=== PATIENT | male | born 1985 | race Caucasian/White ===

== ENCOUNTER 2017-02-10 07:11 | Emergency (ER) | payer OTHER ==
[~2017-02-10] VITALS: Ht 182.9 cm; Wt 77.3 kg
[2017-02-10 07:14] VITALS: BP 147/102
[2017-02-10] MEDS ORDERED: ADACEL/BOOSTRIX VACCINE (DIPHTH/PERTUSS/ACELL/TETANUS)0.5ML SYR (90715) IM ONE (07:30)
== END 2017-02-10 07:52 | disposition home or self-care (01) ==
LOC: M ED 07:11
DX: S61.012A Laceration without foreign body of left thumb without damage to nail, initial encounter (principal); W26.0XXA Contact with knife, initial encounter; Y92.89 Other specified places as the place of occurrence of the external cause; Y93.89 Activity, other specified; Y99.0 Civilian activity done for income or pay

== ENCOUNTER 2018-10-25 14:22 | Emergency (ER) | payer OTHER, SELFPAY ==
[~2018-10-25] VITALS: Ht 182.9 cm; Wt 68.2 kg
[2018-10-25] MEDS ORDERED: NS 1,000 ML IV SCH (15:09)
[2018-10-25] MEDS ORDERED: ASPIRIN 81 MG CHEW TABLET PO ONE (15:15)
[2018-10-25] MEDS ORDERED: GI COCKTAIL 50ML BTL(HYOSCYAMINE/MAALOX/LIDOCAINE VISCOUS)(1:3:1) PO ONE (15:15)
[2018-10-25 15:35] LABS: BASO % 0.3 % (0.0-1.0); EOS # 0.1 10^3/uL (0.0-0.50); EOS % 0.3 % (0.0-3.0); HEMATOCRIT 45.8 % (42.0-52.0); HEMOGLOBIN 15.8 g/dl (13.5-17.5); LYMPH % 12.9 % (24.0-44.0); MEAN CORPUSCULAR HEMOGLOBIN 30.6 pg (27.0-33.0); MEAN CORPUSCULAR HGB CONC 34.5 g/dl (32.0-36.5); MEAN CORPUSCULAR VOLUME 88.6 fl (80.0-96.0); MONO # 1.3 10^3/uL (0.0-0.8); MONO % 8.4 % (0.0-5.0); NEUTROPHILS # 11.8 10^3/uL (1.8-7.7); NEUTROPHILS % 77.8 % (36.0-66.0); PLATELET COUNT, AUTOMATED 263 10^3/uL (150-450); RED BLOOD COUNT 5.17 10^6/uL (4.30-6.10); WHITE BLOOD COUNT 15.1 10^3/uL (4.0-10.0)
[2018-10-25 15:45] LABS: INR 0.98; PROTHROMBIN TIME 13.1 SECONDS (12.1-14.4)
--- NOTE | 2018-10-25 15:46 | REP ---
Chest two views HISTORY: Chest pain Comparison: 07/27/2008 are The lungs are clear. The heart is normal in size. The pulmonary vasculature is normal in appearance. The bony structure is intact. IMPRESSION: No acute disease. Electronically Signed by Wellington Rubio MD 10/25/2018 03:38 P
[2018-10-25 16:17] LABS: ALBUMIN 4.6 GM/DL (3.2-5.2); ALT/SGPT 117 U/L (12-78); BILIRUBIN,DIRECT 0.1 MG/DL (0.0-0.2); BILIRUBIN,TOTAL 0.5 MG/DL (0.2-1.0); BLOOD UREA NITROGEN 9 MG/DL (7-18); CALCIUM LEVEL 9.3 MG/DL (8.5-10.1); CARBON DIOXIDE LEVEL 28 MEQ/L (21-32); CHLORIDE LEVEL 102 MEQ/L (98-107); CPK CREATINE PHOSPHOKINASE 197 U/L (39-308); CREATININE FOR GFR 0.79 MG/DL (0.70-1.30); GLOMERULAR FILTRATION RATE > 60.0 (>60); GLUCOSE, FASTING 92 MG/DL (70-100); LIPASE 78 U/L (73-393); MB/CK RELATIVE INDEX 1.52 (< OR =4); POTASSIUM SERUM 4.2 MEQ/L (3.5-5.1); SODIUM LEVEL 138 MEQ/L (136-145); TROPONIN I < 0.02 NG/ML (< 0.10)
[2018-10-25] MEDS ORDERED: PRIL20TA2 PO (16:38)
[2018-10-25 16:41] VITALS: BP 128/65
--- NOTE | 2018-10-26 13:25 | ECGEPIP ---
Stationary ECG Study [facility] - ED Test Date: 2018-10-25 Pat Name: RAY MARMOLEJO Department: Room: - Gender: M Counter Caser: [facility] : 1985 Requested By: GARFIELD BARFIELD PA-C Order Number: [id number] Reading MD: Rebeca Yoon Measurements Intervals [place] Rate: 124 P: 33 CT: 174 QRS: 26 QRSD: 94 T: 10 QT: 312 QTc: 449 Interpretive Statements SINUS TACHYCARDIA NONSPECIFIC T-WAVE ABNORMALITY ABNORMAL RHYTHM ECG NO PRIOR FOR COMPARISON Electronically Signed On 10-26-2018 13:25:15 EDT by Rebeca Yoon
== END 2018-10-25 17:00 | disposition home or self-care (01) ==
LOC: M ED 14:22
DX: R07.89 Other chest pain (principal); R06.02 Shortness of breath; Z79.899 Other long term (current) drug therapy